=== PATIENT | male | born 1960 | race Caucasian/White ===

== ENCOUNTER → 2017-02-03 | Outpatient (CLI) | payer OTHER ==
[~2017-02-03] MED LIST: AUGMENTIN 875 M1 TAB PO; AUGMENTIN 875875 MG PO; AUGMENTIN PO; CARDIZEM CD360 MG PO; CARDOXIN0.25 MG PO; GLYBURIDE5 MG PO; JANTOVEN5 MG PO; LISINOPRIL10 MG PO; LOPRESSOR100 MG PO; METFORMIN500 MG PO; PRINIVIL5 MG PO; THERAGRAN1 TA1 PO
[2017-02-03 12:26] LABS: ALBUMIN 3.5 gm/dl (3.1-4.5); BUN 15 mg/dl (7-24); CHLORIDE 102 mmol/L (98-107); CREATININE 0.75 mg/dL (0.70-1.30); POTASSIUM 4.3 mmol/L (3.5-5.1); SGOT/AST 17 IU/L (3-35); SGPT/ALT 31 U/L (12-78); SODIUM 136 mmol/L (136-145); TOTAL PROTEIN 7.8 gm/dL (6.4-8.2)
[2017-02-03 12:38] LABS: ALKALINE PHOSPHATASE 42 U/L (45-117); DIGOXIN 0.81 ng/ml (0.8-2.0)
[2017-02-04 20:12] LABS: HEPATITIS C QUANTITATION HCV Not Detected IU/mL (.)
== END | disposition home or self-care (01) ==
LOC: LAB 11:14
PROVIDERS: Nurse Practitioner Family
DX: B19.20 Unspecified viral hepatitis C without hepatic coma (principal); I48.2 Chronic atrial fibrillation

== ENCOUNTER → 2019-01-26 | Outpatient (CLI) | payer OTHER ==
[2019-01-26 14:39] LABS: BILIRUBIN 1+ (NEGATIVE); BLOOD 3+ (NEGATIVE); CLARITY SL CLOUDY (CLEAR); COLOR YELLOW (YELLOW); GLUCOSE NEGATIVE (NEGATIVE); KETONE NEGATIVE (NEGATIVE); LEUKO ESTERASE 1+ (NEGATIVE); NITRITE POSITIVE (NEGATIVE); PH 5.5 (5.0-9.0); SPECIFIC GRAVITY >= 1.030 (1.005-1.030)
[2019-01-26 14:39] LABS: BASO # 0.1 10*3/uL (0.0-0.1); BASO % 0.9 % (0.0-1.0); EOS # 0.4 10*3/uL (0.0-0.4); HEMATOCRIT 40.7 % (42.0-52.0); HEMOGLOBIN 12.8 g/dl (14.0-18.0); LYMPH # 2.5 10*3/uL (1.3-4.4); LYMPH % 20.3 % (27.0-41.0); MEAN CELL VOLUME 98.5 fl (80.0-94.0); MEAN CORPUSCULAR HGB CONC 31.4 g/dl (33.0-37.0); MEAN PLATELET VOLUME 12.2 fl (9.6-12.3); MONO # 0.9 10*3/uL (0.1-1.0); MONO % 7.2 % (3.0-9.0); NEUT # 8.2 10*3/uL (2.3-7.9); NEUT % 67.7 % (47.0-73.0); PLATELET COUNT AUTOMATED 218 10*3/uL (130-400); RED BLOOD COUNT 4.13 10*6/uL (4.50-5.90); RED CELL DISTRI WIDTH 14.4 % (0-14.5); WHITE BLOOD COUNT 12.2 10*3/uL (4.8-10.8)
[2019-01-26 14:44] LABS: EPITHELIAL CELLS 21-30
[2019-01-26 14:45] LABS: BACTERIA 3+; RBC 51-100 rbc/hpf (0-2); WBC 31-40 wbc/hpf (0-5)
[2019-01-26 14:57] LABS: ALBUMIN 3.4 gm/dl (3.1-4.5); BUN 12 mg/dl (7-24); CHLORIDE 102 mmol/L (98-107); CHOLESTEROL 172 mg/dL (<200); CREATININE 0.91 mg/dL (0.70-1.30); POTASSIUM 4.5 mmol/L (3.5-5.1); SGOT/AST 11 IU/L (3-35); SGPT/ALT 19 U/L (12-78); SODIUM 136 mmol/L (136-145); TRIGLYCERIDES 294 mg/dl (<150); VLDL CHOLESTEROL 59 mg/dL (6-40)
[2019-01-26 15:07] LABS: ALKALINE PHOSPHATASE 35 U/L (45-117); HDL CHOLESTEROL 28 mg/dl (40-60); LDL CHOLESTEROL 85 mg/dL (9-159); TOTAL PROTEIN 7.9 gm/dL (6.4-8.2)
== END | disposition home or self-care (01) ==
LOC: LAB 14:09
PROVIDERS: Family Medicine
DX: E11.9 Type 2 diabetes mellitus without complications (principal); E78.2 Mixed hyperlipidemia; N30.00 Acute cystitis without hematuria; R53.81 Other malaise

== ENCOUNTER → 2020-08-06 | Outpatient (CLI) | payer OTHER | END | disposition home or self-care (01) | LOC: COVID19 12:43 | PROVIDERS: ATTEND Family Medicine | DX: Z20.822 Contact with and (suspected) exposure to COVID-19 (principal) ==

== ENCOUNTER → 2020-10-22 | Outpatient (CLI) | payer OTHER ==
[2020-10-22 13:15] LABS: ALBUMIN 3.4 gm/dl (3.1-4.5); ALKALINE PHOSPHATASE 42 U/L (45-117); BUN 15 mg/dl (7-24); CHLORIDE 102 mmol/L (98-107); CHOLESTEROL 182 mg/dL (<200); CREATININE 0.73 mg/dL (0.70-1.30); POTASSIUM 4.2 mmol/L (3.5-5.1); SGOT/AST 12 IU/L (3-35); SGPT/ALT 27 U/L (12-78); SODIUM 135 mmol/L (136-145); TOTAL PROTEIN 7.8 gm/dL (6.4-8.2); TRIGLYCERIDES 522 mg/dl (<150)
[2020-10-22 13:16] LABS: INTERNATIONAL NORM RATIO 2.7 (2.0-3.5)
[2020-10-22 13:25] LABS: DIGOXIN 0.86 ng/ml (0.8-2.0)
== END | disposition home or self-care (01) ==
LOC: LAB 12:05
PROVIDERS: ATTEND Family Medicine
DX: H91.8X9 Other specified hearing loss, unspecified ear (principal); E11.9 Type 2 diabetes mellitus without complications; I10 Essential (primary) hypertension; E78.2 Mixed hyperlipidemia; K73.9 Chronic hepatitis, unspecified; I48.91 Unspecified atrial fibrillation

== ENCOUNTER → 2021-12-21 | Outpatient (CLI) | payer OTHER ==
[2021-12-21 09:57] LABS: BASO # 0.1 10*3/uL (0.0-0.1); BASO % 0.9 % (0.0-1.0); EOS # 0.4 10*3/uL (0.0-0.4); EOS % 3.3 % (1.0-4.0); HEMATOCRIT 46.4 % (42.0-52.0); LYMPH # 2.3 10*3/uL (1.3-4.4); LYMPH % 20.2 % (27.0-41.0); MEAN CELL VOLUME 96.9 fl (80.0-94.0); MEAN CORPUSCULAR HGB 31.1 pg (27.0-31.0); MEAN CORPUSCULAR HGB CONC 32.1 g/dl (33.0-37.0); MEAN PLATELET VOLUME 11.8 fl (9.6-12.3); MONO # 0.8 10*3/uL (0.1-1.0); MONO % 6.6 % (3.0-9.0); NEUT # 7.7 10*3/uL (2.3-7.9); PLATELET COUNT AUTOMATED 177 10*3/uL (130-400); RED BLOOD COUNT 4.79 10*6/uL (4.50-5.90); RED CELL DISTRI WIDTH 13.8 % (0-14.5); WHITE BLOOD COUNT 11.3 10*3/uL (4.8-10.8)
[2021-12-21 10:29] LABS: ALKALINE PHOSPHATASE 40 U/L (45-117); BUN 13 mg/dl (7-24); CHLORIDE 102 mmol/L (98-107); CHOLESTEROL 206 mg/dL (<200); CREATININE 0.89 mg/dL (0.70-1.30); POTASSIUM 4.9 mmol/L (3.5-5.1); SGOT/AST 22 IU/L (3-35); SGPT/ALT 38 U/L (12-78); SODIUM 136 mmol/L (136-145); TOTAL PROTEIN 7.9 gm/dL (6.4-8.2); TRIGLYCERIDES 564 mg/dl (<150)
[2021-12-21 10:38] LABS: DIGOXIN 0.75 ng/ml (0.8-2.0)
== END | disposition home or self-care (01) ==
LOC: LAB 09:29
PROVIDERS: ATTEND Family Medicine
DX: I10 Essential (primary) hypertension (principal); E11.9 Type 2 diabetes mellitus without complications; I48.91 Unspecified atrial fibrillation; Z51.81 Encounter for therapeutic drug level monitoring

== ENCOUNTER → 2022-04-05 | Outpatient (CLI) | payer OTHER ==
[2022-04-05 12:43] LABS: BILIRUBIN Negative (Negative); BLOOD 3+ (Negative); CLARITY Cloudy (Clear); COLOR Yellow (Yellow); GLUCOSE Negative (Negative); KETONE Negative (Negative); LEUKO ESTERASE 2+ (Negative); NITRITE Negative (Negative); PH 5.5 (4.5-8.0); UROBILINOGEN 0.2 E.U./dl (0.0-1.0)
[2022-04-05 13:25] LABS: RBC TNTC rbc/hpf (0-2); WBC TNTC wbc/hpf (0-5)
== END | disposition home or self-care (01) ==
LOC: LAB 11:55
PROVIDERS: ATTEND Urology
DX: R10.9 Unspecified abdominal pain (principal)

== ENCOUNTER → 2023-03-17 | Outpatient (CLI) | payer OTHER ==
[2023-03-17 08:39] LABS: BUN 13 mg/dl (9-23); CHLORIDE 102 mmol/L (98-107); CHOLESTEROL 116 mg/dL (<200); DIGOXIN 1.17 ng/ml (0.8-2.0); LDL CHOLESTEROL 35 mg/dL (9-159); POTASSIUM 4.2 mmol/L (3.4-5.1); TRIGLYCERIDES 264 mg/dl (<150)
== END | disposition home or self-care (01) ==
LOC: LAB 07:41
PROVIDERS: ATTEND Family Medicine
DX: Z51.81 Encounter for therapeutic drug level monitoring (principal); E11.9 Type 2 diabetes mellitus without complications; I10 Essential (primary) hypertension; E78.2 Mixed hyperlipidemia; I48.20 Chronic atrial fibrillation, unspecified

== ENCOUNTER 2024-01-09 12:28 | Inpatient (IN) | payer OTHER ==
[~2024-01-09] VITALS: Ht 172.7 cm; Wt 161.0 kg
[2024-01-09 12:35] VITALS: BP 139/68
[2024-01-09] MEDS ORDERED: SODIUM CHLORIDE 0.9% 1,000 ML IV SCH (12:50)
[2024-01-09 13:18] LABS: HEMATOCRIT 38.3 % (42.0-52.0); MEAN CORPUSCULAR HGB 30.1 pg (27.0-31.0); MEAN CORPUSCULAR HGB CONC 31.1 g/dl (33.0-37.0); MEAN PLATELET VOLUME 12.3 fl (9.6-12.3); PLATELET COUNT AUTOMATED 210 10*3/uL (130-400); RED BLOOD COUNT 3.95 10*6/uL (4.50-5.90); RED CELL DISTRI WIDTH 15.2 % (0-14.5)
[2024-01-09 13:22] LABS: MANUAL DIFF REFLEX YES
[2024-01-09] MEDS ORDERED: DAILY VALUE1 EACH PO (13:27)
[2024-01-09] MEDS ORDERED: LISINOPRIL20 MG PO (13:27)
[2024-01-09] MEDS ORDERED: PIOGLITAZONE HC30 MG PO (13:28)
[2024-01-09] MEDS ORDERED: METOPROLOL TAR100 M1 PO (13:28)
[2024-01-09] MEDS ORDERED: GLIMEPIRIDE2 MG PO (13:28)
[2024-01-09] MEDS ORDERED: JANTOVEN5 MG PO (13:29)
[2024-01-09] MEDS ORDERED: DIGOXIN250 MCG PO (13:29)
[2024-01-09] MEDS ORDERED: METFORMIN HYD1000 MG PO (13:30)
[2024-01-09] MEDS ORDERED: VITAMIN D3125 MCG PO (13:30)
[2024-01-09] MEDS ORDERED: HYDROCODONE-AC1 EAC1 PO (13:31)
[2024-01-09 13:32] LABS: ACT PARTIAL THROMBO TIME 36.1 SECONDS (20.0-32.1)
[2024-01-09] MEDS ORDERED: ACETAMINOPHEN 325 MG TAB PO ONE (13:35)
[2024-01-09 13:37] LABS: ALKALINE PHOSPHATASE 70 U/L (46-116); BUN 11 mg/dl (9-23); CHLORIDE 96 mmol/L (98-107); LIPASE 33 U/L (12-53); POTASSIUM 4.2 mmol/L (3.4-5.1); SGPT/ALT 35 U/L (5-49); TOTAL PROTEIN 7.5 gm/dL (6.0-8.0)
[2024-01-09 13:39] LABS: BASOPHILS 2 % (0-1); PLATELET SUFFICIENCY NORMAL (NORMAL); TOTAL CELLS COUNTED 100 #CELLS
[2024-01-09 13:40] LABS: VACUOLATION OF NEUTROPHILS SLIGHT
[2024-01-09] MEDS ORDERED: Vancomycin Hydrochloride 250 ML IV ONE (14:05)
[2024-01-09] MEDS ORDERED: MAGNESIUM SULFATE 100 ML IV ONE (14:05)
[2024-01-09] MEDS ORDERED: Piperacillin Sodium/Tazobact 50 ML IV ONE (14:05)
[2024-01-09] MEDS ORDERED: Ondansetron Hydrochloride 4 MG/2 ML VIAL IV PRN (14:50)
[2024-01-09] MEDS ORDERED: ACETAMINOPHEN 325 MG TAB PO PRN (14:50)
[2024-01-09] MEDS ORDERED: Magnesium Hydroxide 30 ML UDC PO PRN (14:50)
[2024-01-09] MEDS ORDERED: MORPHINE Sulfate 2 MG/ML SYR IV PRN (14:50)
[2024-01-09] MEDS ORDERED: BISACODYL 10 MG SUPP R PRN (14:50)
[2024-01-09] MEDS ORDERED: BISACODYL 5 MG TAB PO PRN (14:50)
[2024-01-09] MEDS ORDERED: ACETAMINOPHEN 650 MG SUPP R PRN (14:50)
[2024-01-09] MEDS ORDERED: Water, Sterile 10 ML VIAL IV PRN (15:15)
[2024-01-09] MEDS ORDERED: METHOCARBAMOL 750 MG TAB PO PRN (15:15)
[2024-01-09] MEDS ORDERED: hydrOXYzine 50 MG CAP PO PRN (15:15)
[2024-01-09] MEDS ORDERED: LORazepam 2 MG/ML VIAL IV PRN (15:15)
[2024-01-09] MEDS ORDERED: Dicyclomine Hydrochloride 20 MG TAB PO PRN (15:15)
[2024-01-09] MEDS ORDERED: DEXTROSE 10 % IN WATER 250 ML IV PRN (15:20)
[2024-01-09] MEDS ORDERED: ELIQUIS5 M1 PO ×2 (15:45→18:16)
[2024-01-09] MEDS ORDERED: MULTIVITAMIN CONCENTRATE (IV) 10 ML,Thiamine 100 MG,FOLIC ACID 1 MG in SODIUM CHLORIDE ... IV ONE (16:00)
[2024-01-09] MEDS ORDERED: LORazepam 1 MG TAB PO SCH (16:00)
[2024-01-09] MEDS ORDERED: INSULIN LISPRO 1 UNIT/0.01 ML SQ SCH (16:30)
[2024-01-09] MEDS ORDERED: VANCOMYCIN/WATER FOR INJ (PEG) 400 ML IV SCH (18:00)
[2024-01-09 18:31] VITALS: BP 122/63
[2024-01-09] MEDS ORDERED: Piperacillin Sodium/Tazobact 50 ML IV SCH (20:00)
[2024-01-09 20:07] VITALS: BP 131/55
[2024-01-09] MEDS ORDERED: APIXABAN 5 MG TAB PO SCH (22:00)
[2024-01-09] MEDS ORDERED: Metoprolol Tartrate 50 MG TAB PO SCH (22:00)
[2024-01-10] VITALS (7 sets, daily range): BP systolic 100–136; BP diastolic 39–73
[2024-01-10 07:21] LABS: ACT PARTIAL THROMBO TIME 40.2 SECONDS (20.0-32.1); HEMATOCRIT 32.3 % (42.0-52.0); MEAN CELL VOLUME 95.3 fl (80.0-94.0); MEAN CORPUSCULAR HGB 30.4 pg (27.0-31.0); MEAN CORPUSCULAR HGB CONC 31.9 g/dl (33.0-37.0); MEAN PLATELET VOLUME 12.1 fl (9.6-12.3); PLATELET COUNT AUTOMATED 202 10*3/uL (130-400); RED BLOOD COUNT 3.39 10*6/uL (4.50-5.90); RED CELL DISTRI WIDTH 15.7 % (0-14.5); WHITE BLOOD COUNT 22.5 10*3/uL (4.8-10.8)
[2024-01-10 07:25] LABS: MANUAL DIFF REFLEX YES
[2024-01-10 07:34] LABS: ALKALINE PHOSPHATASE 64 U/L (46-116); BUN 14 mg/dl (9-23); CHLORIDE 98 mmol/L (98-107); CHOLESTEROL 73 mg/dL (<200); FREE T4 1.35 ng/dl (0.89-1.76); POTASSIUM 3.9 mmol/L (3.4-5.1); SGPT/ALT 31 U/L (5-49); TOTAL PROTEIN 6.5 gm/dL (6.0-8.0); TRIGLYCERIDES 148 mg/dl (<150)
[2024-01-10 07:38] LABS: LDL CHOLESTEROL 26 mg/dL (9-159)
[2024-01-10 07:50] LABS: VITAMIN D, 25-HYDROXY 50.4 ng/mL (30-100)
[2024-01-10 08:23] LABS: PLATELET SUFFICIENCY NORMAL (NORMAL); TOTAL CELLS COUNTED 100 #CELLS
[2024-01-10] MEDS ORDERED: LISINOPRIL 20 MG TAB PO SCH (10:00)
[2024-01-10] MEDS ORDERED: Enoxaparin Sodium 40 MG/0.4 ML SYR SC SCH (10:00)
[2024-01-10] MEDS ORDERED: DIGOXIN 125 MCG TAB PO SCH (14:00)
[2024-01-10] MEDS ORDERED: LORazepam 1 MG TAB PO SCH (18:00)
[2024-01-11] VITALS: BP 126/77
[2024-01-11] MEDS ORDERED: LORazepam 1 MG TAB PO PRN
[2024-01-11 05:49] LABS: BUN 14 mg/dl (9-23); CHLORIDE 98 mmol/L (98-107); POTASSIUM 3.9 mmol/L (3.4-5.1)
[2024-01-11 06:18] LABS: HEMATOCRIT 30.2 % (42.0-52.0); MEAN CELL VOLUME 96.5 fl (80.0-94.0); MEAN CORPUSCULAR HGB 30.7 pg (27.0-31.0); MEAN CORPUSCULAR HGB CONC 31.8 g/dl (33.0-37.0); MEAN PLATELET VOLUME 12.1 fl (9.6-12.3); PLATELET COUNT AUTOMATED 232 10*3/uL (130-400); RED BLOOD COUNT 3.13 10*6/uL (4.50-5.90); RED CELL DISTRI WIDTH 15.9 % (0-14.5); WHITE BLOOD COUNT 23.4 10*3/uL (4.8-10.8)
[2024-01-11 06:28] LABS: MANUAL DIFF REFLEX YES
[2024-01-11 07:04] LABS: PLATELET SUFFICIENCY NORMAL (NORMAL); TOTAL CELLS COUNTED 100 #CELLS
[2024-01-11 08:00] VITALS: BP 143/76
[2024-01-11] MEDS ORDERED: FLUCONAZOLE 150 MG TAB PO ONE (10:40)
[2024-01-11 12:00] VITALS: BP 139/79
[2024-01-11] MEDS ORDERED: NYSTATIN 15 GM BOT T SCH (14:00)
[2024-01-11 15:17] VITALS: BP 133/69
[2024-01-11] MEDS ORDERED: PERFLUTREN PROTEIN-A MICROSPHR 3 ML VIAL IV ONE (15:39)
[2024-01-11 20:00] VITALS: BP 144/61
[2024-01-12] VITALS: BP 129/67
[2024-01-12 06:44] LABS: HEMATOCRIT 30.2 % (42.0-52.0); MEAN CELL VOLUME 97.4 fl (80.0-94.0); MEAN CORPUSCULAR HGB CONC 30.8 g/dl (33.0-37.0); PLATELET COUNT AUTOMATED 223 10*3/uL (130-400); RED CELL DISTRI WIDTH 15.9 % (0-14.5); WHITE BLOOD COUNT 15.6 10*3/uL (4.8-10.8)
[2024-01-12 06:59] LABS: MANUAL DIFF REFLEX YES
[2024-01-12 07:40] LABS: BASOPHILS 1 % (0-1); PLATELET SUFFICIENCY NORMAL (NORMAL); TOTAL CELLS COUNTED 100 #CELLS
[2024-01-12 07:45] LABS: BUN 12 mg/dl (9-23); CHLORIDE 102 mmol/L (98-107); POTASSIUM 3.9 mmol/L (3.4-5.1)
[2024-01-12 08:00] VITALS: BP 135/61
[2024-01-12 12:00] VITALS: BP 140/60
[2024-01-12 16:00] VITALS: BP 144/64
[2024-01-12] MEDS ORDERED: Ceftriaxone Sodium 2 GM in SYRINGE INFUSION 20 ML IV SCH (18:00)
[2024-01-12 20:00] VITALS: BP 141/63
[2024-01-12] MEDS ORDERED: AMOXICILLIN500 M3 PO (20:31)
[2024-01-13] VITALS: BP 151/73
[2024-01-13 05:39] LABS: BUN 9 mg/dl (9-23); CHLORIDE 104 mmol/L (98-107); POTASSIUM 4.2 mmol/L (3.4-5.1)
[2024-01-13 06:02] LABS: HEMATOCRIT 31.8 % (42.0-52.0); MEAN CELL VOLUME 97.5 fl (80.0-94.0); MEAN CORPUSCULAR HGB 30.4 pg (27.0-31.0); MEAN CORPUSCULAR HGB CONC 31.1 g/dl (33.0-37.0); MEAN PLATELET VOLUME 12.3 fl (9.6-12.3); NUCLEATED RED BLOOD CELL 0.1 % (0.0-0.0); PLATELET COUNT AUTOMATED 259 10*3/uL (130-400); RED BLOOD COUNT 3.26 10*6/uL (4.50-5.90); RED CELL DISTRI WIDTH 15.7 % (0-14.5); WHITE BLOOD COUNT 14.2 10*3/uL (4.8-10.8)
[2024-01-13 06:28] LABS: MANUAL DIFF REFLEX YES
[2024-01-13 07:31] LABS: BASOPHILS 1 % (0-1); TOTAL CELLS COUNTED 100 #CELLS
[2024-01-13 07:32] LABS: PLATELET SUFFICIENCY NORMAL (NORMAL)
[2024-01-13 08:00] VITALS: BP 147/60
== END 2024-01-13 11:15 | disposition home or self-care (01) | DRG 872 ==
LOC: ED 12:28 → 4E 14:13 → EDHOLD 14:13 → 4E 01-10 12:31
PROVIDERS: Internal Medicine; ADMIT Internal Medicine; ATTEND Internal Medicine
DX: A40.8 Other streptococcal sepsis (principal); E87.20 Acidosis, unspecified; I50.22 Chronic systolic (congestive) heart failure; L03.311 Cellulitis of abdominal wall; Z68.43 Body mass index [BMI] 50.0-59.9, adult; E87.1 Hypo-osmolality and hyponatremia; R65.20 Severe sepsis without septic shock; E83.42 Hypomagnesemia; E11.9 Type 2 diabetes mellitus without complications; I48.91 Unspecified atrial fibrillation; E80.6 Other disorders of bilirubin metabolism; D53.9 Nutritional anemia, unspecified; I11.0 Hypertensive heart disease with heart failure; E66.01 Morbid (severe) obesity due to excess calories; Z95.0 Presence of cardiac pacemaker; Z83.3 Family history of diabetes mellitus; Z82.49 Family history of ischemic heart disease and other diseases of the circulatory system; Z90.49 Acquired absence of other specified parts of digestive tract

== ENCOUNTER → 2024-03-29 | Outpatient (CLI) | payer OTHER ==
[~2024-03-29] MED LIST changes: +AMOXICILLIN500 M3 PO; +DAILY VALUE1 EACH PO; +DIGOXIN250 MCG PO; +ELIQUIS5 M1 PO; +GLIMEPIRIDE2 MG PO; +HYDROCODONE-AC1 EAC1 PO; +LISINOPRIL20 MG PO; +METFORMIN HYD1000 MG PO; +METOPROLOL TAR100 M1 PO; +PIOGLITAZONE HC30 MG PO; +VITAMIN D3125 MCG PO
== END | disposition home or self-care (01) ==
LOC: RESCLI 14:31
PROVIDERS: ATTEND Internal Medicine
DX: I48.91 Unspecified atrial fibrillation (principal); E11.9 Type 2 diabetes mellitus without complications; I10 Essential (primary) hypertension; M19.90 Unspecified osteoarthritis, unspecified site; Z79.899 Other long term (current) drug therapy; Z98.890 Other specified postprocedural states